=== PATIENT | female | born 1985 | race Caucasian/White ===

== ENCOUNTER 2017-05-19 06:58 | Emergency (ER) | payer SELFPAY ==
[~2017-05-19] VITALS: Ht 182.9 cm; Wt 86.6 kg
[2017-05-19] MEDS: AZITHROMYCIN 250 MG TABLET. PO ONE (07:26)
[2017-05-19] MEDS: cefTRIAXone IM 250 MG VIAL IM ONE (07:27)
[2017-05-19] MEDS: metroNIDAZOLE 500 MG TABLET PO ONE (07:27)
--- NOTE | 2017-05-19 07:29 | PHYS DOC ---
Past Medical History Past Medical History: No Pertinent History Past Surgical History: Other Additional Past Surgical Histo: cyst removal left ovary Alcohol Use: None Drug Use: None Adult General Chief Complaint Chief Complaint: VAGINAL BLEEDING HPI HPI Patient is a 31 year old female presents to the ED complaining of vaginal discharge x 2 days. Describes discharge as white and chunky. Associated symptoms include dysuria. Patient reports possible STD exposure. Denies abdominal pain, nausea/vomiting, fever, chest pain, shortness of breath, diarrhea. Review of Systems Review of Systems Constitutional: Denies fever or chills [] Eyes: Denies change in visual acuity, redness, or eye pain [] HENT: Denies nasal congestion or sore throat [] Respiratory: Denies cough or shortness of breath [] Cardiovascular: No additional information not addressed in HPI [] GI: Denies abdominal pain, nausea, vomiting, bloody stools or diarrhea [] : Complains of dysuria and vaginal discharge. Denies hematuria [] Musculoskeletal: Denies back pain or joint pain [] Integument: Denies rash or skin lesions [] Neurologic: Denies headache, focal weakness or sensory changes [] Endocrine: Denies polyuria or polydipsia [] Current Medications Current Medications Current Medications Medications (Trade) Dose Ordered Sig/Karime Start Time Stop Time Status Last Admin Dose Admin Azithromycin (Zithromax) 1,000 mg 1X ONCE 05/19/17 07:15 05/19/17 07:16 DC 05/19/17 07:26 1,000 MG Ceftriaxone Sodium (Rocephin Im) 250 mg 1X ONCE 05/19/17 07:15 05/19/17 07:16 DC 05/19/17 07:27 250 MG Metronidazole (Flagyl) 2,000 mg 1X ONCE 05/19/17 07:15 05/19/17 07:16 DC 05/19/17 07:27 2,000 MG Allergies Allergies Allergies Coded Allergies Type Severity Reaction Last Updated Verified No Known Drug Allergies 05/19/17 No Physical Exam Physical Exam Constitutional: Well developed, well nourished, no acute distress, non-toxic appearance. [] HENT: Normocephalic, atraumatic, bilateral external ears normal, oropharynx moist, no oral exudates, nose normal. [] Eyes: PERRLA, EOMI, conjunctiva normal, no discharge. [] Neck: Normal range of motion, no tenderness, supple, no stridor. [] Cardiovascular:Heart rate regular rhythm, no murmur [] Lungs & Thorax: Bilateral breath sounds clear to auscultation [] Abdomen: Bowel sounds normal, soft, no tenderness, no masses, no pulsatile masses. [] : Normal external genitalia, MILD CHUNKY WHITE DISCHARGE. NO ADNEXAL TENDERNESS, LESIONS, MASSES. NORMAL APPEARING CERVIX. Skin: Warm, dry, no erythema, no rash. [] Back: No tenderness, no CVA tenderness. [] Extremities: No tenderness, no cyanosis, no clubbing, ROM intact, no edema. [] Neurologic: Alert and oriented X 3, normal motor function, normal sensory function, no focal deficits noted. [] Psychologic: Affect normal, judgement normal, mood normal. [] Current Patient Data Vital Signs Vital Signs Date Time Temp Pulse Resp B/P (MAP) Pulse Ox O2 Delivery O2 Flow Rate FiO2 05/19/17 08:15 77 18 143/88 (106) 99 Room Air 05/19/17 07:06 98.2 98.2 Lab Values Laboratory Tests Test 05/19/17 07:15 05/19/17 07:22 Urine Collection Type Unknown Urine Color Yellow Urine Clarity Clear Urine pH 6.0 Urine Specific [place] <=1.005 Urine Protein Negative mg/dL (NEG-TRACE) Urine Glucose (UA) Negative mg/dL (NEG) Urine Ketones (Stick) Negative mg/dL (NEG) Urine Blood Negative (NEG) Urine Nitrite Negative (NEG) Urine Bilirubin Negative (NEG) Urine Urobilinogen Dipstick 0.2 mg/dL (0.2 mg/dL) Urine Leukocyte Esterase Small (NEG) Urine RBC 0 /HPF (0-2) Urine WBC 1-4 /HPF (0-4) Urine Squamous Epithelial Cells Few /LPF Urine Bacteria 0 /HPF (0-FEW) POC Urine HCG, Qualitative Hcg negative (Negative) Microbiology 05/19/17 Wet Prep - Final, Complete Microbiology 05/19/17 Wet Prep - Final, Complete EKG EKG [] Radiology/Procedures Radiology/Procedures [] Course & Med Decision Making Course & Med Decision Making Pertinent Labs and Imaging studies reviewed. (See chart for details) []Will treat in ED with Rocephin, azithromycin and Flagyl. Discussed safe sex practice, making partner aware and follow-up STD testing. Discussed labs with patient. Discussed reasons to return to the ED. Patient understands and agrees with plan. Dragon Disclaimer Dragon Disclaimer This electronic medical record was generated, in whole or in part, using a voice recognition dictation system. Departure Departure Impression: Primary Impression: STD exposure Additional Impression: Vaginal discharge Disposition: HOME, SELF-CARE Condition: STABLE Referrals: NO PCP (PCP) SINDY BRADY MD Patient Instructions: Sexually Transmitted Disease, Vaginitis, Sisr-ve-Urid Scripts Fluconazole (DIFLUCAN) 150 Mg Tablet 1 TAB PO ONCE, #2 TAB 1 Refill Prov: YOGESH HIGGINS 05/19/17 Nitrofurantoin Monohyd/M-Cryst (MACROBID 100 MG CAPSULE) 100 Mg Capsule 1 CAP PO BID, #14 CAP Prov: YOGESH HIGGINS 05/19/17 Problem Qualifiers YOGESH HIGGINS May 19, 2017 07:29
[2017-05-19 07:32] LABS: BILIRUBIN,URINE NEGATIVE (NEG); GLUCOSE,URINE NEGATIVE (NEG); NITRITE,URINE NEGATIVE (NEG); PROTEIN,URINE NEGATIVE (NEG-TRACE); UROBILINOGEN,URINE 0.2 mg/dL (0.2 mg/dL)
[2017-05-19 08:00] LABS: BACTERIA,URINE 0 /HPF (0-FEW); RBC,URINE 0 /HPF (0-2); SQUAMOUS EPITHELIAL CELL,UR FEW /LPF
[2017-05-19] MEDS ORDERED: FLUC150T PO (08:10)
[2017-05-19] MEDS ORDERED: NITR100C62 PO (08:10)
[2017-05-19 08:15] VITALS: BP 143/88
== END 2017-05-19 08:19 | disposition home or self-care (01) ==
LOC: ER 06:58
DX: N89.8 Other specified noninflammatory disorders of vagina (principal); Z20.2 Contact with and (suspected) exposure to infections with a predominantly sexual mode of transmission
CPT/HCPCS: 81001; 81025; 87491; 87591; 96372; 99284; J0696; Q0111; Q0144